=== PATIENT | female | born 2000 | race Caucasian/White ===

== ENCOUNTER 2024-08-11 05:21 | Emergency (ER) | payer MEDICAID ==
[~2024-08-11] VITALS: Ht 157.5 cm; Wt 85.2 kg
[2024-08-11 05:29] VITALS: O2SAT 100
[2024-08-11] MEDS: ACETAMINOPHEN 325MG TABLET PO ONE (06:27)
[2024-08-11] MEDS: METOCLOPRAMIDE HCL 10MG TABLET PO ONE (06:27)
[2024-08-11 06:39] LABS: CLARITY URINE CLOUDY (CLEAR); COLOR URINE YELLOW (YELLOW); GLUCOSE URINE NEGATIVE (NEGATIVE); KETONES URINE NEGATIVE (NEGATIVE); LEUKOCYTE ESTERASE URINE TRACE (NEGATIVE); NITRITE URINE NEGATIVE (NEGATIVE); OCCULT BLOOD URINE NEGATIVE (NEGATIVE); PH URINE 5.5 (4.5-8.0); PROTEIN URINE NEGATIVE (NEGATIVE); SPECIFIC GRAVITY URINE 1.021 (1.005-1.030); UROBILINOGEN URINE 0.2 E.U./dL (0.2-1.0)
[2024-08-11 06:51] LABS: BASOPHILS % 0.3 % (0.0-2.0); EOSINOPHILS % 8.9 % (0.0-5.0); HEMATOCRIT. 39.1 % (36.0-48.0); HEMOGLOBIN. 13.3 g/dL (12.0-16.0); LYMPHOCYTES % 21.7 % (20.0-50.0); MEAN CORPUSCULAR HEMOGLOBIN 32.9 pg (28.0-32.0); MEAN CORPUSCULAR HGB CONC 34.2 g/dL (31.0-37.0); MEAN CORPUSCULAR VOLUME 96.4 fL (81.0-99.0); MEAN PLATELET VOLUME 8.3 fl (7.4-10.4); MONOCYTES % 4.3 % (2.0-8.0); NEUTROPHILS % 64.8 % (40.0-76.0); PLATELET 301 x1000/uL (130-400); RED BLOOD CELL COUNT 4.05 mill/uL (4.2-5.4); RED CELL DISTRIBUTION WIDTH 13.4 % (11.6-14.6); WHITE BLOOD COUNT 11.9 x1000/uL (4.5-11.0)
[2024-08-11 06:55] LABS: BACTERIA URINE 1+; RBC URINE 0-2 /hpf (0-2); SQUAMOUS EPITHELIAL CELL URINE 2+ /lpf (RARE/1+)
[2024-08-11 06:55] LABS: CHLORIDE 106 mEq/L (98-107); POTASSIUM 3.8 mEq/L (3.5-5.1); SODIUM 139 mEq/L (136-145)
[2024-08-11 06:56] LABS: CALCIUM OXALATE CRYSTALS URINE 1+ /lpf
[2024-08-11 06:56] LABS: CALCIUM 9.8 mg/dL (8.7-10.4); CARBON DIOXIDE 24 mEq/L (21-32)
[2024-08-11 06:58] LABS: HCG SCREEN POSITIVE
[2024-08-11 07:01] LABS: CREATININE 0.6 mg/dL (0.6-1.0); GLUCOSE 101 mg/dL (70-105); UREA NITROGEN BLOOD 5 mg/dL (9-23)
[2024-08-11 07:03] LABS: ALANINE AMINOTRANSFERASE 17 IU/L (10-49); ALBUMIN 4.3 g/dL (3.2-4.8); ASPARTATE AMINOTRANSFERASE 13 IU/L (<34)
[2024-08-11 07:04] LABS: BILIRUBIN TOTAL 0.3 mg/dL (0.1-1.0); PROTEIN TOTAL 7.3 g/dL (6.0-8.3)
[2024-08-11 07:20] LABS: BILIRUBIN DIRECT < 0.1 mg/dL (<=3.0)
[2024-08-11] MEDS ORDERED: TOPUD PO (08:34)
[2024-08-11 09:36] VITALS: BP 116/62; PULSE 78; RESP 16; TEMP 36.78072; O2SAT 100
== END 2024-08-11 09:38 | disposition home or self-care (01) ==
LOC: ER 05:21
DX: O26.611 Liver and biliary tract disorders in pregnancy, first trimester (principal); K80.70 Calculus of gallbladder and bile duct without cholecystitis without obstruction; Z3A.11 11 weeks gestation of pregnancy
CPT/HCPCS: 99284; 76705; 76801; 80076; 80048; 81003; 81025; 84703; 83690; 85025; 36415; J8597

== ENCOUNTER 2024-08-14 22:03 | Emergency (ER) | payer MEDICAID ==
[~2024-08-14] VITALS: Ht 157.5 cm; Wt 85.0 kg
[~2024-08-14 22:03] MED LIST: TOPUD PO
[2024-08-14 23:07] LABS: CARBON DIOXIDE 27 mEq/L (21-32); CHLORIDE 104 mEq/L (98-107); POTASSIUM 3.7 mEq/L (3.5-5.1); SODIUM 138 mEq/L (136-145)
[2024-08-14 23:08] LABS: CALCIUM 9.4 mg/dL (8.7-10.4)
[2024-08-14 23:12] LABS: CREATININE 0.6 mg/dL (0.6-1.0)
[2024-08-14 23:13] VITALS: O2SAT 100
[2024-08-14 23:13] LABS: BASOPHILS % 0.2 % (0.0-2.0); EOSINOPHILS % 5.6 % (0.0-5.0); GLUCOSE 95 mg/dL (70-105); HEMATOCRIT. 37.4 % (36.0-48.0); HEMOGLOBIN. 13.1 g/dL (12.0-16.0); LYMPHOCYTES % 12.2 % (20.0-50.0); MEAN CORPUSCULAR HEMOGLOBIN 33.5 pg (28.0-32.0); MEAN CORPUSCULAR HGB CONC 35.2 g/dL (31.0-37.0); MEAN CORPUSCULAR VOLUME 95.2 fL (81.0-99.0); MEAN PLATELET VOLUME 8.2 fl (7.4-10.4); MONOCYTES % 4.2 % (2.0-8.0); NEUTROPHILS % 77.8 % (40.0-76.0); PLATELET 309 x1000/uL (130-400); RED BLOOD CELL COUNT 3.93 mill/uL (4.2-5.4); RED CELL DISTRIBUTION WIDTH 13.5 % (11.6-14.6); WHITE BLOOD COUNT 12.6 x1000/uL (4.5-11.0)
[2024-08-14 23:14] LABS: ALANINE AMINOTRANSFERASE 23 IU/L (10-49); ALBUMIN 4.2 g/dL (3.2-4.8); ASPARTATE AMINOTRANSFERASE 25 IU/L (<34)
[2024-08-14 23:15] LABS: BILIRUBIN DIRECT 0.2 mg/dL (<=3.0); BILIRUBIN TOTAL 0.5 mg/dL (0.1-1.0); PROTEIN TOTAL 6.6 g/dL (6.0-8.3)
[2024-08-14 23:22] LABS: UREA NITROGEN BLOOD < 5 mg/dL (9-23)
[2024-08-15] MEDS: ACETAMINOPHEN 325MG TABLET PO ONE (00:01)
[2024-08-15] MEDS: FAMOTIDINE 20MG TABLET PO ONE (00:01)
[2024-08-15] MEDS: MAGNESIUM/ALUMINUM HYDROXIDE/SIMETHICONE 30ML UDC PO STA (00:01)
[2024-08-15] MEDS ORDERED: ACET-2708 MT (01:23)
[2024-08-15 01:52] VITALS: BP 113/72; PULSE 61; RESP 19; TEMP 37.11408; O2SAT 100
== END 2024-08-15 01:53 | disposition home or self-care (01) ==
LOC: ER 22:03
DX: O26.611 Liver and biliary tract disorders in pregnancy, first trimester (principal); K80.20 Calculus of gallbladder without cholecystitis without obstruction; Z36.89 Encounter for other specified antenatal screening; Z3A.10 10 weeks gestation of pregnancy
CPT/HCPCS: 36415; 76705; 76815; 80048; 80076; 81025; 85025; 99284; A4606